=== PATIENT | male | born 1960 ===

== ENCOUNTER → 2020-09-02 | Outpatient (CLI) | payer OTHER | LOC: LAB 08:00 | PROVIDERS: ATTEND Student in an Organized Health Care Education/Training Program | DX: Z01.812 Encounter for preprocedural laboratory examination (principal); Z20.822 Contact with and (suspected) exposure to COVID-19 ==

== ENCOUNTER → 2020-09-06 | Outpatient (CLI) | payer OTHER ==
[~2020-09-06] VITALS: Ht 188 cm; Wt 190.5 kg
[~2020-09-06] MED LIST: FISH OIL 1,0001 EAC9 PO; FLOMAX0.4 MG PO; VITAMIN D350 MC3 PO
--- NOTE | 2020-09-12 18:06 | PATH ---
[facility] [place] [address] PATHOLOGY RPT PROCEDURE Name: SULEMAN VÁZQUEZ Room #: REG CARLOS Roland#: [id number] Admission: 09/06/20 Date of : 62 Discharge: Report #: [id number] Path Case #: [id number] [facility] Accession Number: [id number] . 01 Material submitted: . PART A: cecum - BIOPSY CECAL POLYP X2 PART B: colon - ASCENDING COLON POLYP. Modifiers: ascending PART C: rectum - BIOPSY RECTAL POLYP X3 . 01 Clinical history: . Colon polyps . 02 Diagnosis: A. Colonic mucosa, cecal polyp x 2, biopsy: - Tubular adenoma. - Prominent benign appearing reactive lymphoid aggregate. . B. Colonic mucosa, ascending colon polyp, biopsy: - Tubular adenoma. . C. Rectal type mucosa, rectal polyp x 3, biopsy: - Hyperplastic polyp. - Hyperplastic changes. (SCA:pit; 09/08/2020) QTP 09/08/2020 1504 Local . 02 Electronically signed: . Jameel Alfaro DO, Pathologist NPI- [id number] . 01 Gross description: . A. The specimen is received in formalin, labeled "Suleman Kathie, biopsy cecal polyp". Received are three segments of pale bueno tissue ranging in size from 0.2-0.3 cm in maximum dimensions. The specimen is submitted entirely in cassette A1. . B. The specimen is received in formalin, labeled "Suleman Vázquez, biopsy ascending colon polyp". Received are two segments of pale bueno tissue measuring 0.5 and 0.7 cm in maximum dimensions. The specimen is submitted entirely in cassette B1. . C. The specimen is received in formalin, labeled "Suleman Vázquez, biopsy rectal polyp". Received are two segments of pale bueno tissue measuring 0.3 and 0.4 cm in maximum dimensions. The specimen is submitted entirely in cassette C1. (CAA; 09/07/2020) QAC/QAC 09/07/2020 [address] [place] [address] PATHOLOGY RPT PROCEDURE Name: SULEMAN VÁZQUEZ Room #: REG Anna Roland#: [id number] Admission: 09/06/20 Date of : 62 Discharge: Report #: [id number] Path Case #: [id number] . 02 Pathologist provided ICD-10: D12.0, D12.2, K62.1 . 02 CPT . 958573, [id number], [id number] Specimen Comment: A courtesy copy of this report has been sent to [phone] Specimen Comment: [id number] Specimen Comment: Report sent to / DR ARTEAGA Specimen Comment: A duplicate report has been generated due to demographic updates. Performed at: 01 [facility] [address] [id number] MD Kaveh Werner MD Phone: [phone] Performed at: 02 [facility] [address] [id number] MD Hood Vizcarra MD Phone: [phone]
== END | disposition home or self-care (01) ==
LOC: GI
PROVIDERS: ATTEND Internal Medicine Gastroenterology
DX: Z12.11 Encounter for screening for malignant neoplasm of colon (principal); D12.0 Benign neoplasm of cecum; D12.2 Benign neoplasm of ascending colon; K62.1 Rectal polyp; K57.30 Diverticulosis of large intestine without perforation or abscess without bleeding; K64.8 Other hemorrhoids; K63.89 Other specified diseases of intestine; G47.30 Sleep apnea, unspecified; Z98.890 Other specified postprocedural states; Z79.899 Other long term (current) drug therapy; Z87.442 Personal history of urinary calculi
CPT/HCPCS: 62110; 62900